=== PATIENT | female | born 1975 | race Caucasian/White ===

== ENCOUNTER 2020-12-15 16:35 | Outpatient (CLI) | payer OTHER, SELFPAY ==
--- NOTE | 2020-12-15 16:44 | MR_ITS ---
WS: [id number] MRI RIGHT SHOULDER NONCONTRAST TECHNIQUE: Sagittal T2, coronal T1, T2 and proton density imaging. Axial gradient PDE imaging. CLINICAL INFORMATION: RIGHT ROTATOR CUFF ARTHROPATHHY COMPARISON: None. FINDINGS: Mild degenerative arthritis at the AC joint with moderate downsloping of the acromion. Moderate narro wing of the subacromial space. Subacromial spurring. Slight impingement on the distal supraspinatus. Tendinopathy in the distal supraspinatus. Small amount of subacromial/subdeltoid fluid. Tiny intrasub stance tear of the supraspinatus insertion. Normal infraspinatus. Normal teres minor. Normal subscapularis. Mild chronic thinning of the subscapu shanita which appears intact. Normal biceps tendon in the bicipital groove. Intra-articular biceps tend on is normal. Glenoid labrum appears grossly normal. Normal bone marrow signal. MR/MR shoulder RT wo con* [id number] IMPRESSION: 1. Mild degenerative arthritis AC joint with moderate downsloping acromion. Na rrowing of the subacromial space. 2. Tiny intrasubstance tear involving the distal supraspinatus with tendinopat hy. 3. Rotator cuff is otherwise unremarkable. No full-thickness rotator cuff tear s. 4. Normal biceps tendon in the bicipital groove. 5. No other significant findings.
== END 2020-12-15 16:36 | disposition home or self-care (01) ==
PROVIDERS: PCP Family Medicine; Visit Provider Family Medicine
DX: M19.011 Primary osteoarthritis, right shoulder (principal)
CPT/HCPCS: 73221